=== PATIENT | male | born 1985 | race Caucasian/White ===

== ENCOUNTER → 2021-11-20 14:26 | Outpatient (CLI) | payer OTHER, SELFPAY | PROVIDERS: PCP Internal Medicine; Visit Provider Nurse Practitioner | DX: Z20.822 Contact with and (suspected) exposure to COVID-19 (principal) | CPT/HCPCS: C9803; U0003; U0005 ==

== ENCOUNTER 2022-06-06 12:33 | Emergency (ER) | payer SELFPAY ==
[2022-06-06 12:58] VITALS: BP 130/99; PULSE 100; RESP 17; TEMP 36.7; O2SAT 95; BMI 45.6
--- NOTE | 2022-06-06 13:02 | HMH.EDUTC ---
[facility] [place] Disposition Clinical Impression: Exposure to COVID-19 virus Disposition: Home, Self-Care Condition on Discharge: Good Instructions: DI for COVID-19 (Suspected or Confirmed ), Preventing the Spread of Coronavirus Discharge Instructions Additional Instructions: Drink plenty of fluids. Take tylenol for pain or fever. Return if you begin to have difficulty breathing. Follow up with your regular doctor. GO TO THE ER FOR ANY WORSENING SYMPTOMS Quarantine until you know the results of your covid-19 test. If it is positive, the health department should call you and give you further instructions about your length of Quarantine and other things. Notify your school or workplace of your results and follow their instructions regarding return to work/school. Referrals: Manuel Valle [Primary Care Provider] - Forms: Work/School Release Time of Disposition: 13:05 Medical Decision Making - Medical Records Medical records reviewed: No: I reviewed the patient's medical records. - Greg Inquiry Pt receiving controlled substance: No Vital Signs: 06/06/22 12:58 06/06/22 13:11 Temperature 98.0 F 98.0 F Temperature Source Oral Pulse Rate 100 H Pulse Rate [Left] 100 H Respiratory Rate 17 17 Blood Pressure 130/99 H Blood Pressure [Right Arm] 130/99 H Blood Pressure Mean [Right Arm] 109 02 Sat by Pulse Oximetry 95 Orders (Tests/Meds): ORDERS Category Date Time Status Covid-19 Nasal PCR ([facility]) Routine Lab 06/06/22 12:45 Received [facility] [place] HPI - General Stated complaint: covid test Time Seen by Provider: 06/06/22 13:02 Mode of Arrival: Ambulatory Source of Information: Patient Limitations: No Limitations Description of Symptoms (Recalled from Triage Doc. by RN): patient comes in for covid test. 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 He denies any symptoms so far. - Related Data Allergies Allergy/AdvReac Type Severity Reaction Status Date / Time No Known Allergies Allergy Verified 06/06/22 13:00 - Worker's Comp Is this a Worker's Comp case?: No [facility] History - Hepatitis A Screen Attestation statement:: This patient has been screened for Hepatitis A risk factors. I have reviewed the patient's past medical history: Yes ROS Obtained: Yes All systems reviewed & no additional complaints - Constitutional Constitutional: Reports as per HPI - Eyes Eyes: Denies eye discharge - Musculoskeletal Musculoskeletal: Reports as per HPI Physical Exam - General General appearance: alert, in no apparent distress - Head Head exam: atraumatic, normocephalic, normal inspection - Eye Eye exam: Present: normal appearance, PERRL, EOMI - ENT ENT exam: Present: normal exam, normal oropharynx, mucous membranes moist, TM's normal bilaterally, normal external ear exam - Neck Neck exam: Present: normal inspection, full ROM, trachea midline. Absent: meningismus, lymphadenopathy - Chest Chest inspection: Present: normal inspection, symmetric chest wall rise. Absent: tenderness - Respiratory Respiratory exam: Present: normal lung sounds bilaterally. Absent: respiratory distress - Cardiovascular Cardiovascular exam: Present: regular rate, normal rhythm. Absent: JVD - Abdominal Exam Abdominal exam: Present: soft, normal bowel sounds. Absent: distention, tenderness, guarding - Extremities Exam Extremities exam: Present: normal inspection, full ROM, normal capillary refill. Absent: calf tenderness - Back Exam Back exam: Present: normal inspection. Absent: tenderness - Neurological Exam Neurological exam: Present: alert, oriented X3
[2022-06-06 13:11] VITALS: BP 130/99; PULSE 100; RESP 17; TEMP 36.7
== END 2022-06-06 13:12 | disposition home or self-care (01) ==
PROVIDERS: Emergency Provider Nurse Practitioner Family; PCP Internal Medicine
DX: Z20.822 Contact with and (suspected) exposure to COVID-19 (principal)
CPT/HCPCS: 99212; C9803; G0463; U0003; U0005

== ENCOUNTER 2023-03-19 17:31 | Emergency (ER) | payer SELFPAY ==
[2023-03-19 17:42] VITALS: BP 131/83; PULSE 104; RESP 20; TEMP 36.9; O2SAT 98; BMI 42.5
--- NOTE | 2023-03-19 18:00 | EXP.UTC ---
Discharge Plan Referrals Follow up/Referrals: Manuel Valle [Primary Care Provider] - See instructions Activity Restrictions/Add. Instructions Additional Instructions/Restrictions: Drink extra fluids with and between meals. If you have difficulty drinking, try very small amounts of water or suck on ice chips. ? Avoid fruit juices, as these do not replace minerals and can actually increase diarrhea. ? Children and adults can use sports drinks to replenish electrolytes. Younger children and infants should use products formulated for children, like oral rehydration solutions. ? Eat food in small amounts and let your stomach recover. ? Get lots of rest. You may feel tired or weak. ? No greasy or fried foods for the next 24-48 hours BRAT diet Bananas Rice Apples and Watha ? Make sure to drink plenty of liquids ? Return if needed ? Straight to ER if any life threatening symptoms ? Follow up with family doctor in the next 48-72 hours if no improvement or any worsening of symptoms Clinical Impressions Clinical Impression: Diarrhea Stand Alone Forms Stand Alone Forms: Work/School Release Instructions Patient Instructions: Diarrhea Discharge ED Provider: Ilsa Ventura [facility] General Stated complaint: Nausea,Vomitting,Fever,Chills Mode of Arrival: Ambulatory Source of Information: Patient Limitations: No Limitations Time Seen by Provider: 03/19/23 18:00 Description of Symptoms (Recalled from Triage Doc. by RN): pt states he feels fine today, however, he was sent home sick from work yesterday and needs a note to return to work. HEENT Symptoms (Recalled from RN notes): No Resp Symptoms (Recalled from RN notes): No Skin Symptoms (Recalled from RN notes): No MS Symptoms (Recalled from RN notes): No Functional Status (Recalled from RN notes): wnl History of Present Illness Provider Complaint: Patient States that he was at work last night and started feeling bad States that he felt like he had the cold chills and diarrhea and was sent home from work States today he is better and no longer having diarrhea and feels fine but work made him come in and get a note Related Data Allergies Allergy/AdvReac Type Severity Reaction Status Date / Time No Known Allergies Allergy Verified 03/19/23 17:50 Worker's Comp Is this a Worker's Comp case?: No [facility] Disclaimer: The information contained in this section may have been updated after the patient was seen, as this information can be updated by other users. Social History Smoking Status: Unknown if ever smoked alcohol intake: never current occupational status: employed Travel in the last 8 weeks: None ROS Obtained: Yes All systems reviewed & no additional complaints except as documented and Yes Systems reviewed as appropriate & no additional complaints except as documented Constitutional Constitutional: Reports system reviewed and no additional complaints, except as documented, Reports as per HPI and Reports chills Eyes Eyes: Reports system reviewed and no additional complaints, except as documented and Reports as per HPI ENT Ears, Nose, Mouth, and Throat: Reports system reviewed and no additional complaints, except as documented and Reports as per HPI Cardiovascular Cardiovascular: Reports system reviewed and no additional complaints, except as documented and Reports as per HPI Respiratory Respiratory: Reports system reviewed and no additional complaints, except as documented and Reports as per HPI Gastrointestinal Gastrointestingal: Reports system reviewed and no additional complaints, except as documented, as per HPI and diarrhea; Denies abdominal pain, nausea or vomiting Physical Exam General General appearance: alert and in no apparent distress ENT ENT exam: Present mucous membranes moist Respiratory Respiratory exam: Present normal lung sounds bilaterally; Absent respiratory distress or wh
[2023-03-19 18:11] VITALS: BP 131/83; PULSE 104; RESP 20; TEMP 36.9
== END 2023-03-19 18:23 | disposition home or self-care (01) ==
PROVIDERS: Emergency Provider Nurse Practitioner; PCP Internal Medicine
DX: R19.7 Diarrhea, unspecified (principal); R68.83 Chills (without fever)
CPT/HCPCS: 99212; 99213; G0463

== ENCOUNTER 2023-08-24 21:07 | Emergency (ER) | payer SELFPAY ==
[2023-08-24 21:08] VITALS: BP 153/78; PULSE 108; RESP 18; TEMP 36.8; O2SAT 98; BMI 42.7
--- NOTE | 2023-08-24 21:28 | PC.NURSE ---
doctor in the room at time of rounding.
--- NOTE | 2023-08-24 21:32 | HMH.EDGENADL ---
Discharge Plan Disposition Patient Disposition: Home, Self-Care Referrals Follow up/Referrals: Manuel Valle [Primary Care Provider] - See instructions Activity Restrictions/Add. Instructions Additional Instructions/Restrictions: Keep Neosporin on this once a day for the next 7 days have your sutures removed in 7 to 10 days. Return with any spreading redness pus coming from your wound or other concerns. Clinical Impressions Clinical Impression: Finger laceration Instructions Patient Instructions: DI for Laceration Repair Discharge ED Provider: Cari Parson General Adult HPI General Chief complaint: Wound/Laceration Stated complaint: ao08/24@2049 LT middle finger lac Time Seen by Provider: 08/24/23 21:10 Mode of Arrival: Ambulatory Source of Information: Patient Limitations: No Limitations Description of Symptoms (Recalled from ER Triage Doc. by RN): pt c/o I cut my left middle finger chopping peppers History of Present Illness HPI narrative: Patient is a 38-year-old male presenting with a left distal phalanx finger laceration after working with a blade cutting peppers. States he has some carpal tunnel chronically and some paresthesias in the fingertips of sometimes he cut his fingers without knowing. Unknown tetanus vaccination no changes in movement or sensation from historical standpoint. No injuries elsewhere. Related Data Allergies Allergy/AdvReac Type Severity Reaction Status Date / Time No Known Allergies Allergy Verified 03/19/23 17:50 [facility] Disclaimer: The information contained in this section may have been updated after the patient was seen, as this information can be updated by other users. Social History (Updated 03/19/23 @ 18:04 by Ilsa Ventura APRN) Smoking Status: Never smoker alcohol intake: never current occupational status: employed Travel in the last 8 weeks: None ROS Obtained: Yes All systems reviewed & no additional complaints except as documented Physical Exam General General appearance: alert and in no apparent distress Respiratory Respiratory exam: Present normal lung sounds bilaterally; Absent respiratory distress Cardiovascular Cardiovascular exam: Present regular rate; Absent tachycardia Expanded Upper Extremity Exam Left: Hand exam: Present other (Normal capillary refill and sensation distal to the injury no bony involvement just involving the volar fat pad) Hand L/R front image: 1. laceration Neurological Exam Neurological exam: Present alert and oriented X3 Medical Decision Making Greg Inquiry Pt receiving controlled substance: No Vital Signs: 08/24/23 21:08 Temperature 98.2 F Temperature Source Oral Pulse Rate [Left Radial] 108 H Respiratory Rate 18 Blood Pressure [Right Arm] 153/78 H Blood Pressure Mean [Right Arm] 103 Blood Pressure Source [Right Arm] Automatic Cuff Blood Pressure Position [Right Arm] Sitting 02 Sat by Pulse Oximetry 98 Oxygen Delivery Method Room Air Orders (Tests/Meds): ED MEDICATIONS Generic Name Dose Route Start Last Admin Trade Name Freq PRN Reason Stop Dose Admin Tetanus/Reduced Diphtheria/Acell Pertussis 0.5 ml 08/24/23 21:31 Tet/Diphth/Pert-Adult 0.5ml Syringe IM 08/24/23 21:32 .ONCE ONE Medical Decision Narrative: 38-year-old male with a 3 cm laceration over the volar fat pad of the left middle finger on the distal phalanx. This was successfully repaired see procedure note. Return precautions discussed no indication for any prophylactic antibiotics. Tdap was given in the emergency department Procedures Laceration Laceration 1: Site: finger Side (If applicable): left Size (cm): 3 Description: linear Depth: simple, single layer Local Anesthetic: lidocaine 1% and with epi Amount of anesthesia used (mL): 9 (Including left digital block) Pre-repair: wound explored, irrigated extensively and deep s
[2023-08-24 21:41] VITALS: BP 144/78; PULSE 88; RESP 16; TEMP 36.6; O2SAT 98
== END 2023-08-24 21:44 | disposition home or self-care (01) ==
PROVIDERS: Emergency Provider Student in an Organized Health Care Education/Training Program; PCP Internal Medicine
DX: S61.213A Laceration without foreign body of left middle finger without damage to nail, initial encounter (principal); Z23 Encounter for immunization; W26.0XXA Contact with knife, initial encounter
CPT/HCPCS: 12002; 90715; 96372; 99283

== ENCOUNTER 2024-12-03 09:12 | Emergency (ER) | payer BC, SELFPAY ==
[2024-12-03 09:13] VITALS: BP 126/83; PULSE 91; RESP 16; TEMP 36.8; O2SAT 97; BMI 39.5
--- NOTE | 2024-12-03 09:25 | PC.NURSE ---
DR MERCADO AT BEDSIDE
--- NOTE | 2024-12-03 09:33 | ED_ITS ---
Discharge Plan Disposition Patient Disposition: Home, Self-Care Condition: Good Prescriptions Prescriptions: New methocarbamol 500 mg tablet 500 mg PO Q6H Qty: 40 0RF Referrals Follow up/Referrals: Manuel Valle [Primary Care Provider] - See instructions Activity Restrictions/Add. Instructions Additional Instructions/Restrictions: For treatment of generalized aches and pains, you can alternate Tylenol and ibuprofen every 3 hours or take both medications together every 6 hours. You can take the Robaxin up to 4 times per day for muscle spasm. If you experience new weakness, numbness, bowel or bladder incontinence, please return to the ER for reevaluation. Clinical Impressions Clinical Impression: Fall Qualifiers: Encounter type: initial encounter Qualified Code(s): W19.XXXA - Unspecified fall, initial encounter Back pain Qualifiers: Back pain location: thoracic back pain Chronicity: acute Back pain laterality: bilateral Qualified Code(s): M54.6 - Pain in thoracic spine Stand Alone Forms Stand Alone Forms: Work/School Release Instructions Patient Instructions: How to Prevent Falls Print Language Print Language: Mauritanian Discharge ED Provider: Iram Escalante General Adult HPI General Chief complaint: Fall Stated complaint: AO-Fall 08- Pain in shoulders/back Time Seen by Provider: 12/03/24 09:15 Mode of Arrival: Ambulatory Source of Information: Patient Limitations: No Limitations Description of Symptoms (Recalled from ER Triage Doc. by RN): Patient states he fell this morning and now his neck and lower back is hurting. States he doesn't think anything is broken and that it feels like he just pulled a muscle however he lifts heavy things at work and just wanted to get checked out. History of Present Illness HPI narrative: Patient is a 39-year-old male presenting with back pain. Patient states he was in the process of getting into his car when his foot slipped and he fell backwards. Patient landed on his back but denies hitting his head or losing consciousness. Patient moves and lifts multiple items for his job and is concerned about being able to work comfortably today. Patient denies numbness, tingling, weakness, headache, neck pain. Patient denies significant medical problems. Related Data Previous Rx's ?Medication ?Instructions ?Recorded methocarbamol 500 mg tablet 500 mg PO Q6H #40 tabs 12/03/24 Allergies Allergy/AdvReac Type Severity Reaction Status Date / Time No Known Allergies Allergy Verified 03/19/23 17:50 [facility] Disclaimer: The information contained in this section may have been updated after the patient was seen, as this information can be updated by other users. Social History (Updated 03/19/23 @ 18:04 by Ilsa Ventura APRN) Smoking Status: Current every day smoker alcohol intake: never current occupational status: employed Travel in the last 8 weeks: None Have you lived/traveled outside [place] in past 30 days?: No Contact w/someone who lives/traveled outside [place] past 30 days?: No Exposure to someone with infectious disease in past 14 days?: No Do you have a fever (greater than 100.4 F or 38 C)?: No Have you tested positive for COVID-19: No Exposed to someone with COVID-19 in past 14 days?: No Do you have a sore throat?: No Do you have a cough?: No Do you have any weakness?: No Do you have any diarrhea?: No Are you experiencing any unusual bleeding?: No Do you have any muscle aches/pain?: No Do you have any abdominal pain?: No Are you experiencing loss of taste or smell?: No ROS Obtained: Yes All systems reviewed & no additional complaints except as documented Physical Exam General General appearance: alert and in no apparent distress Head Head exam: atraumatic, normocephalic and normal inspection Eye Eye exam: Present normal appearance, PERRL and EOMI Neck Neck exam: Present normal inspection, full ROM and trachea midline; Absent meningismus or lymphadenopathy Respiratory Respiratory exam: Absent respiratory distress or wheezes Cardiovascular Cardiovascular exam: Present regular rate and normal rhythm; Absent JVD Abdominal Exam Abdominal exam: Present soft; Absent distention Extremities Exam Extremities exam: Present normal inspection, full ROM and normal capillary refill; Absent calf tenderness Back Exam Back exam: Present normal inspection; Absent tenderness Neurological Exam Neurological exam: Present alert, oriented X3 and normal gait; Absent motor sensory deficit Psychiatric Psychiatric exam: Present normal affect and normal mood Skin Skin exam: Present warm, dry, intact and normal color Medical Decision Making Medical Records Medical records reviewed: Yes I reviewed the patient's medical records. Screening: Per USPSTF and CDC recommendations, given the prevalence of disease in our region, it is our hospital?s policy to screen for HIV and viral Hepatitis for all patients aged 18 and over and those with ongoing risk factors. Greg Inquiry Pt receiving controlled substance: No Greg was queried for this patient: No Vital Signs: 12/03/24 09:13 Temperature 98.2 F Temperature Source Oral Pulse Rate [Radial] 91 H Respiratory Rate 16 Blood Pressure [Right Arm] 126/83 Blood Pressure Mean [Right Arm] 97 Blood Pressure Source [Right Arm] Automatic Cuff Blood Pressure Position [Right Arm] Sitting 02 Sat by Pulse Oximetry 97 Oxygen Delivery Method Room Air Orders (Tests/Meds): ORDERS Category Date Time Status HIV Combo Stat Lab 12/03/24 09:19 Ordered Hepatitis C Ab Qual. W/ RFX Stat Lab 12/03/24 09:19 Ordered Medical Decision Narrative: In summary, this is a 39-year-old male presenting after a fall. Differential diagnosis includes was not limited to, closed head injury, spine fracture or malalignment, muscular contusion, among others. Based on patient's ground-level fall, no loss of consciousness or direct head trauma, no midline spinal tenderness or neurologic deficits, patient does not need XR or CT scans at this time. Patient is not on blood thinners and has no other high risk comorbidities at this time. Patient will be provided a work excuse and prescription for Robaxin along with symptomatic management for home. Patient agreement with this plan. Patient will follow-up with his PCP as needed. Iram Escalante MD Critical Care Critical Care Time Critical Care Time: No
[2024-12-03 09:35] VITALS: BP 119/80; PULSE 90; RESP 16; TEMP 36.8; O2SAT 99
== END 2024-12-03 09:36 | disposition home or self-care (01) ==
PROVIDERS: Emergency Provider Student in an Organized Health Care Education/Training Program; PCP Internal Medicine
DX: M54.50 Low back pain, unspecified (principal); M54.2 Cervicalgia; Z72.0 Tobacco use; W01.198A Fall on same level from slipping, tripping and stumbling with subsequent striking against other object, initial encounter; Y93.89 Activity, other specified; Y92.9 Unspecified place or not applicable
CPT/HCPCS: 99283